=== PATIENT | male | born 1980 | race African-American/Black ===

== ENCOUNTER 2023-04-06 10:40 | Outpatient (AMB) | payer OTHER, SELFPAY ==
[2023-04-06 12:47] VITALS: BP 130/76; PULSE 76; TEMP 36.8; O2SAT 99
--- NOTE | 2023-04-06 12:47 | AM.OFFWIN_ITS ---
Intake Vital Signs 04/06/23 12:47 Height 5 ft 6 in BP 130/76 Blood Pressure Location Lt brachial Position Sitting Pulse 76 Pulse Source Pulse Oximeter Temp 98.3 F Temp Source Oral Pulse Oximetry (%) 99 Intake Visit Reasons: EP cough chills mucous [id number] Intake Note: pt is here for c.o cough, body ache with chills, congestion with mucus. Pt states symptoms started 4 weeks ago, went away and started back up again last week Patient Tobacco Use Status: Current everyday Tobacco user Allergies No Known Allergies Allergy (Verified 04/06/23 12:48) Do you need a note to return to daycare/school/sports/work: Yes HPI HPI Comments History of Present Illness Details presents to walkin today with complaints of cough, congestion and chills for last 1 week Denies fevers, sore throat, chest pain, palpitations, weakness, dizziness, nausea, vomiting, diarrhea Denies hearing loss, drainage from ear, ringing in the ear, dizziness, syncope. Patient reports last month he was sick, it resolved and then about a week ago he started developing symptoms again He has been using wepp-uov-ofbacyn NyQuil with some improvement of his symptoms [facility] Medical History (Updated 04/06/23 @ 13:26 by Jaylin Fox APRN, VETERINARY TECHNOLOGY INSTRUCTOR) Sinusitis Social History Patient Tobacco Use Status: Current everyday Tobacco user Review of Systems Const All systems reviewed & are unremarkable except as noted in HPI and below Physical Exam Vital Signs: Last Vital Signs Temp 98.3 F 04/06/23 12:47 Pulse 76 04/06/23 12:47 BP 130/76 04/06/23 12:47 Pulse Ox 99 04/06/23 12:47 General: awake, alert, oriented. Answers questions appropriately. Fully engaged in examination. Skin: warm, dry, intact HEENT: Normocephalic. Hearing intact. Left TM erythematous, cloudy. Right TM normal to visual inspection. Cardiac: External chest normal in appearance. Respiratory: No cough, audible wheezing or stridor. Lung sounds clear to auscultation bilaterally Abdomen: without gross distension. MS: No obvious swelling or deformities. Neurological: Oriented to person, place, time and situation. Thought process intact. Psychiatric: Appropriate mood and affect. Good judgment and insight. Assessment & Plan Assessment & Plan (1) Otitis media, left: Code(s): H66.92 - Otitis media, unspecified, left ear Plan Diagnosis left otitis media Augmentin DS BID for 7 days. Drink plenty of fluids, avoid getting anything in the ear, tylenol/motrin as needed. All questions and concerns were addressed during the visit, patient agrees with the plan. Follow up with pcp or in walkin for any new or worsening symptoms. Medications: New amoxicillin-pot clavulanate 875-125 mg 1 tab PO BID 14 tabs 0RF Coding Level of Care Code Est Pt Level 4 (14884) Diagnoses Otitis media, left H66.92
== END 2023-04-06 14:46 | disposition home or self-care (01) ==
PROVIDERS: PCP Internal Medicine; Visit Provider Registered Nurse Emergency
DX: H66.92 Otitis media, unspecified, left ear (principal)
CPT/HCPCS: 99213

== ENCOUNTER → 2024-01-06 09:23 | Outpatient (BNVA) | payer OTHER, SELFPAY | PROVIDERS: PCP Internal Medicine; Visit Provider Physician Assistant | DX: S00.83XA Contusion of other part of head, initial encounter (principal); W22.8XXA Striking against or struck by other objects, initial encounter | CPT/HCPCS: 70100 ==

== ENCOUNTER → 2024-01-15 13:03 | Outpatient (BNVA) | payer OTHER, SELFPAY | PROVIDERS: PCP Internal Medicine; Visit Provider Physician Assistant Medical | DX: S86.011A Strain of right Achilles tendon, initial encounter (principal); X50.3XXA Overexertion from repetitive movements, initial encounter; Y93.02 Activity, running | CPT/HCPCS: 73610; 99203 ==

== ENCOUNTER → 2024-01-18 13:59 | Outpatient (BNVA) | payer OTHER, SELFPAY | PROVIDERS: PCP Internal Medicine; Visit Provider Physician Assistant Medical | DX: S86.011A Strain of right Achilles tendon, initial encounter (principal); X50.3XXA Overexertion from repetitive movements, initial encounter | CPT/HCPCS: 99213 ==

== ENCOUNTER → 2024-01-28 14:53 | Outpatient (BNVA) | payer OTHER, SELFPAY | PROVIDERS: PCP Internal Medicine; Visit Provider Physician Assistant Medical | DX: S86.011A Strain of right Achilles tendon, initial encounter (principal); X50.3XXA Overexertion from repetitive movements, initial encounter | CPT/HCPCS: 99213 ==

== ENCOUNTER → 2024-02-11 08:22 | Outpatient (BNVA) | payer OTHER, SELFPAY | PROVIDERS: PCP Internal Medicine; Visit Provider Physician Assistant Medical | DX: S86.011D Strain of right Achilles tendon, subsequent encounter (principal); X50.3XXD Overexertion from repetitive movements, subsequent encounter | CPT/HCPCS: 99213 ==

== ENCOUNTER 2024-03-04 09:00 | Outpatient (RCR) | payer OTHER, SELFPAY ==
--- NOTE | 2024-01-22 07:54 | MHC.PT.EP ---
[facility] [place] Office [place] Office [place] Office [address] Zahra Landa [address] [phone] F: [phone] F: [phone] F: [phone] F: [phone] Physical Therapy Plan of Care Date of Evaluation: 01/22/24 Date of Surgery: Diagnosis: R ankle achilles tendon strain Assessment: 43 y/o male referred to PT with R ankle achilles sprain from work connection. 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 Examination shows decreased R ankle ROM, decreased muscle length of B hip flexors/ quads/ gastroc-soleus, decreased R ankle strength, pain, edema along R insertion of achilles, and impaired gait pattern. Recommend PT 2x/week for 6 weeks to address impairments, implement HEP, and optimize functional mobility. Distributed heel lift for R shoe to offload achilles with gait. Frequency and Duration: The patient will be seen 2x/week for 6 weeks Short Term Goals: 3 weeks I with HEP Pt will demonstrate gait without limp Pt will be able to perform standign >10 B Heel raises to optimize daily movement Intermediate Goals: 6 weeks I with HEP and self management of sx Pt will be able to walk > 30 min with pain < 3/10 Pt will be able to descend stairs with pain < 3/10 Pt will improve LEFS to >50/80 (IR 35/80) Treatment Plan: Modalities to reduce pain, spasms and effusion. Manual therapy to restore motion and function. Therapeutic exercise to improve strength and flexibility. Neuromuscular re-education for posture and balance. Therapeutic activities to return to functional activities of daily living. Electronically signed by: Viji Jose PT Please sign and return to therapist. Thank you for your referral.
--- NOTE | 2024-02-29 10:00 | MHC.PT.RE ---
[facility] [place] Office [place] Office [place] Office [address] Zahra Landa [address] [phone] F: [phone] F: [phone] F: [phone] F: [phone] Physical Therapy Re-evaluation Diagnosis: R ankle achilles tendon strain Date of Surgery: Date of Evaluation: 01/22/24 Treatments to Date: 11 Cancellations to Date: 0 No Shows to Date: 0 Subjective: Reports ortho took another x-ray and there is a bone spur but they beleive the tendon is still attached? They are ordering an MRI and delaying RTW until mid-March Reports still difficulty with stairs (most painful) and walking fast (pain during push-off). Pain Score: 2-3 Pain Location: R achilles at insertion Objective Measures: R Ankle AROM and strength: dorsiflexion 10*, 4/5 plantarflexoni 45*, 4-/5 eversion 15*, 4+/5 inversion 25*, 4/5 GAIT: decreased alejandrina, decreased plantarflexion during terminal stance (early heel rise) Stairs: ascends without deviation however increased hip drop an dearly heel rise with descent improved calcaneal mobility LEFS 56/80 still small area of swelling inertional achilles region Assessment: He is making gradual progress and compliant with HEP. See objective measures for ROM, strength, and gait assessment, LEFS 56/80. He reports moving better overall but still not able to walk fast and hurts when he pushes off his R foot. ALso reports continued difficulty with stairs, especially descending stairs. Recommend continued PT 2x/week for an additional 3 weeks to progress strength, remove last heel wedge, work on flexibility and power to optimize function and decrease injury risk He had some pain with kickstand stance during rows during second set and held. Short Term Goals: 3 weeks - all MET I with HEP Pt will demonstrate gait without limp Pt will be able to perform standign >10 B Heel raises to optimize daily movement Skilled Nursing Goals: 6 weeks I with HEP and self management of sx Pt will be able to walk > 30 min with pain < 3/10 - progressing Pt will be able to descend stairs with pain < 3/10 - proressing Pt will improve LEFS to >50/80 (IR 35/80) MET Pt will LEFS to 66/80 (new IR 56/80) Pt will report overall decrease in pain <2/10 with functional mobility Frequency and Duration: The patient will be seen 2x/week for 3 more weeks Treatment Plan: Therapeutic Exercise Dynamic Therapeutic Activities Neuromuscular Re-ed Manual Therapies Gait Home Exercise Program Patient Education Hot or Cold Pack Reviewed/ Agreed with Student Documentation: Therapist: Electronically signed by: Viji Jose PT Please sign and return to therapist. Thank you for your referral.
--- NOTE | 2024-04-13 10:40 | MHC.PT.DC ---
[facility] [place] [facility] [place] [facility] [place] [facility] [address] Zahra Landa [address] [facility] [phone] F: [phone] F: [phone] F: [phone] F: [phone] Physical Therapy Discharge Report Diagnosis: R ankle achilles tendon strain Date of Surgery: Date of Evaluation: 01/22/24 Date of Discharge: 04/13/24 Treatments to Date: 12 Cancellations to Date: 0 No Shows to Date: 0 Discharge Status: Independent with HEP Discharge Summary: Pt did not f/u with further appointments and it has been > 30 days since last attended visit therefore is d/c. At time of last attended visit, his gait pattern had been steadily improving and he was tolerating more weightbearing exercises throughout session. He still was unable to jog, run, or perform deep squat d/t increased achilles pain and had f/u with MD regarding this. Electronically signed by: Viji Jose PT Please sign and return to therapist. Thank you for your referral.
== END 2024-04-13 10:40 | disposition home or self-care (01) ==
LOC: HO.PTCHIC 09:00
PROVIDERS: PCP Internal Medicine; Visit Provider Physician Assistant Medical
DX: M76.61 Achilles tendinitis, right leg (principal)
CPT/HCPCS: 97110; 97161; 97530

== ENCOUNTER 2024-04-08 15:33 | Outpatient (REF) | payer OTHER, SELFPAY ==
--- NOTE | ~2024-04-08 | XR_ITS ---
EXAMINATION: XR CHEST 2 VIEWS HISTORY: R07.9 - Chest pain, unspecified COMPARISON: There are no prior studies for comparison. FINDINGS: PA and lateral views of the chest are submitted. The lungs are expanded and clear. There is no pleural effusion, pneumothorax, or pulmonary vascular congestion. The heart is normal in size. There is mild dextroscoliosis of the thoracic spine. XR/XR chest 2V IMPRESSION: Clear lungs. Electronically signed by: Kelvin Gardner MD 04/11/2024 10:37 AM PARKER
--- OUTSIDE RECORDS SUMMARY | 2024-04-08 16:12 | XMS_ITS | Clinical Summary ---
Author Organization [facility] Address [address] [place] [address] Phone Care Team Providers Care Venetian Blind Tape Cutter Name Role Phone Maisha Ascencio MD Primary [...] Care Team Description 04/08/2024 Telephone Adult Medicine [facility] [address] [place] [phone] Maisha Antoine MD Chest Pain 03/29/2024 8:00 AM EST Ancillary Procedure [facility] [address] [facility] [address] [place] [phone] Chest pain due to gastrointestinal reflux disease 02/12/2024 Telephone Adult [facility] [address] [place] [phone] Maisha Antoine MD 02/05/2024 3:30 PM EST Office Visit [facility] [address] [place] [address] Maisha Antoine MD Chest pain due to gastrointestinal reflux disease (Primary Dx); Epigastric pain 02/05/[address] [phone] Maisha Antoine MD triage call [...] Recently Relevant to Health Maintenance Care Teams Venetian Blind Tape Cutter Relationship Specialty Start Date End Date Maisha Ascencio MD [address] [place] [id number] PCP - General Internal Medicine 11/01/13
--- OUTSIDE RECORDS SUMMARY | 2024-04-08 16:12 | XMS_ITS | Encounter Summary ---
Author Organization [facility] Address [address] [place] [address] Care Team Providers Care Paper Final Inspector Name Role Phone Maisha Ascencio MD Primary Care Prov ider Reason for Visit * Reason Onset Date Comments Chest Pain 04/08/2024 Encounter Details Date Type Department Care Team ([facility] st Contact Info) Description 04/08/2024 Telephone Adult Medicine - [place] [address] [place] [phone] Maisha Ascencio MD [address] [place], [place] [phone] Chest Pain Social History Tobacco Use Types [...] pain. Pt had a stress test @ [facility] 03-29-24 For ALL patients calling to schedule [...] traveled recently to another state outside of [place], [place], [place], [place], [place], [place], [place]? NO o If yes, did you quarantine [...] vehicle accident? NO If yes, gather 3rd constitution party insurance information Date of accident/Injury: n/a How long has patient had these symptoms?: 2 months PCP: Dr Kearney Payor: RAHUL documented in this encounter Plan of Treatment Not on file documented as of this encounter Visit Diagnoses Not on filedocumented in this encounter Care Teams Paper Final Inspector Relationship Specialty Start Date End Date Maisha Ascencio MD [address] [place] [id number] PCP - General Internal Medicine 11/01/13 documented as of this encounter
--- OUTSIDE RECORDS SUMMARY | 2024-04-08 16:12 | XMS_ITS | Encounter Summary ---
Author Organization [facility] Address [address] [place] [address] Care Team Providers Care Director Of Patient Care Name Role Phone Maisha Ascencio MD Primary Care Prov ider Reason for Visit * Cardiac Stress Testing (Routine) - Closed Specialty Diagnoses / Procedures Referred By Contac t Referred To Contact Cardiology Diagnoses Chest pain due to gastrointestinal reflux disease Procedures Exercise stress test Maisha Ascencio MD [address] [place] [id number] [facility] Referral ID Status Reason Start Date Expiration Date Visits Re quested Visits Authorized [id number] Closed 02/05/2024 02/04/2025 1 1 Encounter Details Date Type Department Care Team (Latest Contact Info) Description 03/29/2024 8:00 AM EST Ancillary Procedure [facility] [address] [facility] [address] [place] [address] Chest pain due to gastrointestinal [...] disease documented in this encounter Care Teams Director Of Patient Care Relationship Specialty Start Date End Date Maisha Ascencio MD [address] [place] [address] PCP - General Internal Medicine 11/01/13 documented as of this encounter
--- OUTSIDE RECORDS SUMMARY | 2024-04-08 16:12 | XMS_ITS | Encounter Summary ---
Author Organization [facility] Address [address] [place] [address] Care Team Providers Care Animation Camera Operator Name Role Phone Maisha Ascencio MD Primary Care Prov ider Encounter Details Date Type Department Care Team ([facility] st Contact Info) Description 02/12/2024 Telephone Adult Medicine - [place] [address] [place] [phone] Maisha Ascencio MD [address] [place] [address] Social History Tobacco Use Types Packs/Day Years [...] on filedocumented in this encounter Care Teams Animation Camera Operator Relationship Specialty Start Date End Date Maisha Ascencio MD [address] [place] [address] PCP - General Internal Medicine 11/01/13 documented as of this encounter
== END 2024-04-08 15:34 | disposition home or self-care (01) ==
LOC: HO.HMGCX 15:33
PROVIDERS: PCP Internal Medicine; Visit Provider Physician Assistant Medical
DX: R07.89 Other chest pain (principal)
CPT/HCPCS: 71046

== ENCOUNTER 2024-04-08 15:33 | Outpatient (AMB) | payer OTHER, SELFPAY ==
--- OUTSIDE RECORDS SUMMARY | 2024-04-08 15:34 | XMS_ITS | Encounter Summary ---
Author Organization [facility] Address [address] [place] [address] Care Team Providers Care Floor And Wall Applier Liquid Name Role Phone Maisha Ascencio MD Primary Care Prov ider Reason for Visit * Reason Onset Date Comments Chest Pain 04/08/2024 Encounter Details Date Type Department Care Team ([facility] st Contact Info) Description 04/08/2024 Telephone Adult Medicine - [place] [address] [place] [phone] Maisha Ascencio MD [address] [place], [place] [phone] Chest Pain Social History Tobacco Use Types Packs/Day Years Used Date Smoking Tobacco: Every Day Cigarettes Smokeless Tobacco: Never Alcohol Use Standard Drinks/Week Comments Yes 0 (1 standard drink = 0.6 oz pur e alcohol) Sex and Gender Information Value Date Recorded Sex Assigned at Not on file Gender Identity Not on file Sexual Orientation Not on file Job Start Date Occupation Industry Not on file Not on file Not on file documented as of this encounter Progress Notes * Angelita Billings LPN - 04/08/2024 1:24 PM EST Updated patient with provider recommendation.Patient in agreement to go * Caridad Valdivia - 04/08/2024 12:56 PM EST Patient called asking for a call back. Please call * Maisha Ascencio MD - 04/08/2024 11:17 AM EST If he has continued chest pain he should really go to the emergency room * Angelita Billings LPN - 04/08/2024 10:15 AM EST Spoke with patient, he has performed his stress test. He is currently still having chest pain. He did report that he often smokes marijuana at bedtime or takes shot of alcohol. Education patient thatmehnaz has been linked to many stomach issue. Advise to reduce smoking especially prior to bed. He states he has been using gas x and the omeprazole. He states he does smoke cigarettes as well. Hewas seen 02/05/24. Should be he been seen again? * Maria Eugenia Tineo - 04/08/2024 9:30 AM EST Symptoms patient is presenting: pt c/o continued chest pain. Pt had a stress test @ [facility] 03-29-24 For ALL patients calling to schedule any appointment (routine, sick visit, follow up, consult, etc.) in the outpatient setting please ask the following questions: Do you have fever of higher than 101, sore throat with difficulty swallowing or severe shortness ofbreath? NO If YES to any of these above symptoms, send a message to triage and do not book. Red dot. If no, an audio or video visit should be booked. Have you had close contact with someone with Coronavirus in the last 14 days? NO Have you traveled abroad? NO Have you traveled recently to another state outside of [place], [place], [place], [place], [place], [place], [place]? NO o If yes, did you quarantine for 14 days or have a negative covid test? NO If yes to any of the above, patient is not to be scheduled in office until after 14 day quarantine or negative covid test. If pain or injury related was it due to an accident at work or from a motor vehicle accident? NO If yes, gather 3rd alliance party insurance information Date of accident/Injury: n/a How long has patient had these symptoms?: 2 months PCP: Dr Kearney Payor: RAHUL documented in this encounter Plan of Treatment Not on file documented as of this encounter Visit Diagnoses Not on filedocumented in this encounter Care Teams Floor And Wall Applier Liquid Relationship Specialty Start Date End Date Maisha Ascencio MD [address] [place] [id number] PCP - General Internal Medicine 11/01/13 documented as of this encounter
--- OUTSIDE RECORDS SUMMARY | 2024-04-08 15:35 | XMS_ITS | Clinical Summary ---
Author Organization [facility] Address [address] [place] [address] Phone Care Team Providers Care Pulp Drier Firer Name Role Phone Maisha Ascencio MD Primary Care Prov ider Allergies No known active allergies Medications Medication Sig Dispensed Refills Start Date End Date Status acetaminophen (TYLENOL) 500 mg tablet Take 2 tablets (1,000 mg total) by mouth. 12/19/2021 Active ibuprofen (ADVIL,MOTRIN) 800 mg tablet TAKE 1 TABLET ORALLY 3 TIMES A DAY FOR PAIN SWELLING Active fluticasone propionate (FLONASE) 50 mcg/actuation nasal spray 2 sprays in each nostril daily 08/20/2017 Active omeprazole (PriLOSEC) [address] capsule Take 1 capsule (20 mg total) by mouth 1 (one) time each day. Do not crush or chew. 30 each 11 02/05/2024 02/04/2025 Active Encounters Date Type Department Care Team Description 04/08/2024 Telephone Adult Medicine [facility] [address] [place] [phone] Maisha Antoine MD Chest Pain 03/29/2024 8:00 AM EST Ancillary Procedure [facility] [address] [facility] [address] [place] [phone] Chest pain due to gastrointestinal reflux disease 02/12/2024 Telephone Adult [facility] [address] [place] [phone] Maisha Antoine MD 02/05/2024 3:30 PM EST Office Visit [facility] [address] [place] [address] Maisha Antoine MD Chest pain due to gastrointestinal reflux disease (Primary Dx); Epigastric pain 02/05/[address] [phone] Maisha Antoine MD triage call back from Last 3 Months Immunizations Name Administration Dates Next Due Tdap Tetanus diptheria acell ular pertussis (Boostrix; Adacel) 7yo and older 03/06/2014 Surgical History Surgery Date Site/Laterality Comments OTHER SURGICAL HISTORY PROCEDURE: DENIES PREVIOUS SURGERY WRIST SURGERY 2022 Left PROCEDURE: HISTORICAL WRIST SURGERY Family History Medical History Relation Name Comments No Known Problems Brother 1 No Known Problems Brother 2 Other: cancer Father unkown type Diabetes Maternal Grandfather Diabetes Maternal Grandmother Diabetes Mother Relation Name Status Comments Brother 1 Alive Brother 2 Alive Father Maternal Grandfather Maternal Grandmother Mother Alive Paternal Grandfather Paternal Grandmother Social History Tobacco Use Types Packs/Day Years Used Date Smoking Tobacco: Every Day Cigarettes Smokeless Tobacco: Never Tobacco Cessation:Ready to Q uit: Not Asked; Counseling Given: Not Answered Alcohol Use Standard Drinks/Week Comments Yes 0 (1 standard drink = 0.6 oz pur e alcohol) Sex and Gender Information Value Date Recorded Sex Assigned at Not on file Gender Identity Not on file Sexual Orientation Not on file Job Start Date Occupation Industry Not on file Not on file Not on file Obstetrics History Last Filed Vital Signs Vital Sign Reading Time Taken Comments Blood Pressure 147/110 03/29/2024 8:08 AM EST Pulse 73 02/20/2023 8:59 AM EST Temperature 36.9 ??C (98.4 ??F) 02/05/2024 3:36 PM ES T Respiratory Rate - - Oxygen Saturation - - Inhaled Oxygen Concentration - - Weight 98.9 kg (218 lb) 03/29/2024 8:08 AM EST Height 167.6 cm (5' 6 ) 03/29/2024 8:08 AM EST Body Mass Index 35.19 03/29/2024 8:08 AM EST Plan of Treatment Health Maintenance Due Date Last Done Comments Pneumococcal Vaccine: Pediat rics (0 to 5 Years) and At-Risk Patients (6 to 64 Years) (1 of 2 - PCV) 1984 Hepatitis A Vaccines (1 of 2 - Risk 2-dose series) 1997 Hepatitis B Vaccines (1 of 3 - 19+ 3-dose series) 1997 Colorectal Cancer Screening: Colonoscopy 02/04/2022 Depression Screening 02/04/2022 HIV Screening 02/04/2022 Hepatitis C Screening 02/04/2022 Social Influencers of Health Screening 02/04/2022 COVID-19 Vaccine (2 - 2023-2 5 season) 2023 06/13/2020 Influenza Vaccine (#1) 2023 DTaP,Tdap,and Td Vaccines (2 - Td or Tdap) 03/06/2024 03/06/2014 Cholesterol Screening (Lipid Panel) 11/04/2026 11/04/2021 HIB Vaccines Aged Out No longer eligi ble based on patient's age to complete this topic HPV Vaccines Aged Out No longer eligi ble based on patient's age to complete this topic IPV Vaccines Aged Out No longer eligi ble based on patient's age to complete this topic MMR Vaccines Aged Out No longer eligi ble based on patient's age to complete this topic Meningococcal ACWY Vaccine Aged Out N o longer eligible based on patient's age to complete this topic RSV Immunization Patients Un nicole 20 months Aged Out No longer eligible b ased on patient's age to complete this topic Varicella Vaccines Aged Out No longer eligible based on patient's age to complete this topic Procedures Procedure Name Priority Date/Time Associated Diagnosis Comments STRESS TEST ONLY EXERCISE Routine 03/29/2024 8:53 AM EST Chest pain due to gastrointestinal reflux disease LIPID PANEL Routine 11/04/2021 from Last 3 Months or Most Recently Relevant to Health Maintenance Results * Exercise stress test (03/29/2024 8:53 AM EST) Exercise/injec tion duration (min) 10 CV STRESS ONLY Exercise/injec tion duration (sec) 0 CV STRESS ONLY Peak SBP 160 mmHg CV STRESS ONLY Peak DBP 100 mmHg CV STRESS ONLY Peak HR 153 bpm CV STRESS ONLY Baseline HR 93 bpm CV STRES S ONLY Baseline SBP 147 mmHg CV STRE SS ONLY Baseline DBP 110 mmHg CV STRE SS ONLY Estimated workload 13.1 METS CV STRESS ONLY Percent HR 88 % CV STRESS ONLY Rate Pressure Product 24,480.0 mmHg*bpm CV STRESS ONLY Target HR 148 bpm CV STRESS ONLY Anatomical Region Laterality Modality Cardiac Diagnost ic 03/29/2024 8:10 AM EST 03/29/2024 8:55 AM EST Narrative 03/31/2024 5:46 PM EST ?No evidence of ischemia by ECG at this adequate level of stress. ?Exercise stress test was performed. Patient reported no chest pain during the stress test. Exercise capacity was above average. Normal blood pressure response. Stress Findings A Vance protocol stress test was performed. Overall, the patient's exercise capacity was above average. Total stress time was 10 min and 0 sec. The test was stopped because the patient experienced fatigue. Blood pressure demonstrated a normal response. Heart rate demonstrated a normal response. The patient reported no chest pain during the stress test. ECG 44 year old male with reports of atypical chest pain. PMH includes current smoking. The ECG shows normal sinus rhythm. The ECG axis is normal. The baseline ECG has early repolarization. There were no arrhythmias during stress. There is no significant ST abnormalities during stress. There were no arrhythmias during recovery. T wave inversion noted in lead V6 during recovery. Maisha Ascencio MD CV STRESS PROCEDURES * Lipid panel (11/04/2021) LDL/HDL Ratio 3 0 - 4 Triglycerides 96 0 - 150 mg/dL Cholesterol 178 0 - 200 mg/dL HDL 64 40 mg/dL LDL Cholesterol 95 0 - 100 mg/dL Blood Venous blood specimen / Unknown Historical Provider LAB BLOOD ORDERAB LES from Last 3 Months or Most Recently Relevant to Health Maintenance Care Teams Pulp Drier Firer Relationship Specialty Start Date End Date Maisha Ascencio MD [address] [place] [id number] PCP - General Internal Medicine 11/01/13
--- OUTSIDE RECORDS SUMMARY | 2024-04-08 15:35 | XMS_ITS | Encounter Summary ---
Author Organization [facility] Address [address] [place] [address] Care Team Providers Care Sausage Inspector Name Role Phone Maisha Ascencio MD Primary Care Prov ider Reason for Visit * Cardiac Stress Testing (Routine) - Closed Specialty Diagnoses / Procedures Referred By Contac t Referred To Contact Cardiology Diagnoses Chest pain due to gastrointestinal reflux disease Procedures Exercise stress test Maisha Ascencio MD [address] [place] [address] [address] [facility] Referral ID Status Reason Start Date Expiration Date Visits Re quested Visits Authorized [id number] Closed 02/05/2024 02/04/2025 1 1 Encounter Details Date Type Department Care Team (Latest Contact Info) Description 03/29/2024 8:00 AM EST Ancillary Procedure [facility] - [facility] [address] [facility] [address] [place] [address] Chest pain due to gastrointestinal reflux disease Social History Tobacco Use Types Packs/Day Years [...] on file documented as of this encounter Last Filed Vital Signs Vital Sign Reading Time Taken Comments Blood Pressure 147/110 03/29/2024 8:08 AM EST Pulse - - Temperature - - Respiratory Rate - - Oxygen Saturation - - Inhaled Oxygen Concentration - - Weight 98.9 kg (218 lb) 03/29/2024 8:08 AM EST Height 167.6 cm (5' 6 ) 03/29/2024 8:08 AM EST Body Mass Index 35.19 03/29/2024 8:08 AM EST documented in this encounter Plan of Treatment Not on file documented as of this encounter Procedures Procedure Name Priority Date/Time Associated Diagnosis Comments STRESS TEST ONLY EXERCISE Routine 03/29/2024 8:53 AM EST Chest pain due to gastrointestinal reflux disease documented in this encounter Results * Exercise stress test (03/29/2024 8:53 [...] recovery. Maisha Ascencio MD CV STRESS PROCEDURES documented in this encounter Visit Diagnoses Diagnosis Chest pain due to gastrointestinal reflux disease documented in this encounter Care Teams Sausage Inspector Relationship Specialty Start Date End Date Maisha Ascencio MD [address] [place] [id number] PCP - General Internal Medicine 11/01/13 documented as of this encounter
--- OUTSIDE RECORDS SUMMARY | 2024-04-08 15:35 | XMS_ITS | Encounter Summary ---
Author Organization [facility] Address [address] [place] [address] Care Team Providers Care Can Bander Operator Name Role Phone Maisha Ascencio MD Primary Care Prov ider Encounter Details Date Type Department Care Team ([facility] st Contact Info) Description 02/12/2024 Telephone Adult Medicine - [place] [address] [place] [phone] Maisha Ascencio MD [address] [place] [address] Social History Tobacco Use Types Packs/Day Years [...] on file documented as of this encounter Plan of Treatment Not on file documented as of this encounter Visit Diagnoses Not on filedocumented in this encounter Care Teams Can Bander Operator Relationship Specialty Start Date End Date Maisha Ascencio MD [address] [place] [address] PCP - General Internal Medicine 11/01/13 documented as of this encounter
--- NOTE | 2024-04-08 15:48 | MHC.OFFWIV ---
Intake Vital Signs 04/08/24 15:50 Weight 210 lb BP 124/80 Blood Pressure Location Rt brachial Position Sitting Pulse 94 Pulse Source Pulse Oximeter Temp 98.7 F Temp Source Oral Pulse Oximetry (%) 98 Oxygen Delivery Method Room Air Intake Visit Reasons: EP Chest discomfort Intake Note: Patient here for chest discomfort that has been present for about 2 months. Patient Tobacco Use Status: Current everyday Tobacco user Allergies No Known Allergies Allergy (Verified 04/08/24 15:52) Do you need a note to return to daycare/school/sports/work: No HPI HPI Comments History of Present Illness Details This is a 44-year-old male who presented to the walk-in clinic complaining of persistent chest discomfort x4 months. He states it started approximately 4 months ago and it was located in the lower central chest and radiates just beneath both breast bones. He states the pain is worse at bedtime when laying down and the pain is worse while leaning forward. He denies any worsening of his pain with exertion or with deep breaths. He denies any radiation of his pain to his arms, jaw, neck, or back. He denies associated shortness of breath, nausea/vomiting, or diaphoresis. He saw his primary care physician approximately 2 months ago and he was started on PO omeprazole for suspected acid reflux. He states he has been taking this with mild relief but his chest discomfort has persisted. Patient does admit to eating a lot of spicy and acidic foods and typically lays down right after eating. He was then evaluated by a culture media laboratory assistant and he had a stress test about 1-1/2 weeks ago, which was within normal limits. He states the culture media laboratory assistant told him the next step would be to obtain a chest x-ray to evaluate for any bony or pulmonary abnormality. He tried to call his primary care physician to obtain a chest x-ray but they told him to go to an emergency room or an urgent care. [facility] Social History Patient Tobacco Use Status: Current everyday Tobacco user Review of Systems Const All systems reviewed & are unremarkable except as noted in HPI and below Reports no additional complaints Eyes Reports no additional complaints ENT Reports no additional complaints Card Reports no additional complaints Resp Reports no additional complaints GI Reports no additional complaints Reports no additional complaints Musc Reports no additional complaints Skin/Breast Reports system reviewed and no additional complaints, except as documented Neuro Reports no additional complaints Psych Reports no additional complaints Endo Reports no additional complaints Dioni/Lymph Reports no additional complaints Aller/Immun Reports no additional complaints Physical Exam Vital Signs: Last Vital Signs Temp 98.7 F 04/08/24 15:50 Pulse 94 04/08/24 15:50 BP 124/80 04/08/24 15:50 Pulse Ox 98 04/08/24 15:50 Oxygen Delivery Method Room Air 04/08/24 15:50 Const Other: Vital signs reviewed. Constitutional: Non-toxic appearing. No acute distress. Well-developed and well-nourished. HEENT: Normocephalic and atraumatic. Skin: Warm and dry. No rashes or lesions noted. Neck: Full and painless range of motion. No cervical lymphadenopathy. Cardio: Regular rate and rhythm. No murmurs, gallops, or rubs. No lower extremity edema. No JVD. Reproducible tenderness to palpation to the lower central chest wall and just underneath bilateral breast bones. Pulmonary: No respiratory distress. No accessory muscle usage. Clear to auscultation bilaterally without wheezing, crackles, or rhonchi. Gastrointestinal: Soft, nontender, and nondistended in all 4 quadrants. Musculoskeletal: Normal range of motion in joints throughout the body. No deformity or other signs of injury. Neuro: Alert and oriented x4. Cranial nerves 2-12 grossly intact. No focal deficits appreciated. Psych: Normal mood and affect. Assessment & Plan Assessment & Plan (1) Chest pain: Code(s): R07.9 - Chest pain, unspecified Qualifiers: Chest pain type: other chest pain Qualified Code(s): R07.89 - Other chest pain Plan: This is a 44-year-old male who presented to the walk-in clinic complaining of persistent chest pain x4 months. His chest pain is atypical for cardiac etiology as it is non-exertional, non-radiating, not associated with nausea, shortness breath, or diaphoresis, and it is reproducible. Additionally, the patient recently underwent a stress test, which was within normal limits. I did offer the patient a repeat EKG; however, he declined at this time as he recently had an EKG and a stress test done. His lungs are clear to auscultation bilaterally so pleural effusion versus pneumothorax appears less likely. He has no shortness a breath, hypoxia/tachycardia, or lower extremity edema to suggest pulmonary embolism. A chest x-ray was obtained to evaluate for bony or pulmonary abnormality and his chest x-ray was negative for bony abnormality or acute cardiopulmonary process but did show some mild gastric distention. I believe that patient's symptoms are very likely related to acid reflux. I recommended symptomatic management including continuing with daily PPI as well as lifestyle changes such as avoiding spicy/acidic foods and sitting upright for 2-3 hours after eating. Also recommended drinking a small glass of milk if he were to wake up in the middle of the night with heartburn/indigestion as he states this did help him in the past. Additionally, I gave him a prescription for p.o. famotidine 40 mg every night at bedtime as needed for heartburn/indigestion. Patient should continue to follow-up with his culture media laboratory assistant as well as his primary care physician for further evaluation. Patient was advised to follow-up here for persistent or worsening symptoms or to follow up in the emergency room if he were to develop any new or worsening chest pain, shortness of breath, or lower extremity edema. Patient verbalizes understanding and he is in agreement with the plan and he was very appreciative of the help. Orders: Orders XR chest 2V Today R07.9 - Chest pain, unspecified Medications: New famotidine 40 mg PO BEDTIME PRN 20 tabs 0RF heartburn Coding Level of Care Code Est Pt Level 3 (85586) Diagnoses Other chest pain R07.89 Chest pain type: other chest pain
[2024-04-08 15:50] VITALS: BP 124/80; PULSE 94; TEMP 37.1; O2SAT 98
== END 2024-04-08 16:17 | disposition home or self-care (01) ==
PROVIDERS: PCP Internal Medicine; Visit Provider Physician Assistant Medical
DX: R07.89 Other chest pain (principal)

== ENCOUNTER → 2024-04-08 16:13 | Outpatient (BNV) | payer OTHER, SELFPAY | PROVIDERS: PCP Internal Medicine; Visit Provider Radiology Diagnostic Radiology | DX: R07.9 Chest pain, unspecified (principal) | CPT/HCPCS: 71046 ==